=== PATIENT | female | born 1950 | race Asian ===

== ENCOUNTER 2019-04-18 18:57 | Emergency (ER) | payer BC, MEDICARE ==
[~2019-04-18] VITALS: Ht 154.9 cm; Wt 70.3 kg
[2019-04-18 19:09] VITALS: BP 121/56
--- NOTE | 2019-04-18 19:13 | NUR ---
PT AMBULATED TO ED BED 12
--- NOTE | 2019-04-18 19:28 | NUR ---
69 Y/O FEMALE PRESENTS TO ED, C/O COUGH X4 DAYS. COUGH IS NONPRODUCTIVE. LUNG SOUNDS BILAT CLEAR. DENIES ANY CHEST PAIN. NO SOB/DIFFICULTY BREATHING. PT STATES HAVING FEVER, AFEBRILE DURING TRIAGE ASSESSMENT. PT VSS. ERMD AWARE. WILL COTNINUE TO MONITOR.
[2019-04-18] MEDS ORDERED: ALBUTEROL 0.083% 2.5 MG/3 ML NEBU INH ONE (20:20)
--- NOTE | 2019-04-18 20:28 | NUR ---
NASAL FLU SWAB COLLECTED
--- NOTE | 2019-04-18 20:39 | NUR ---
XRAY AT BEDSIDE
--- NOTE | 2019-04-18 20:43 | NUR ---
RT AT BEDSIDE.
--- NOTE | 2019-04-18 21:08 | NUR ---
PT STATES HAVING RELIEF AFTER BREATHING TX.
[2019-04-18 21:30] VITALS: BP 121/56
--- NOTE | 2019-04-18 21:30 | NUR ---
PT DISCHARGED WITH PAPERWORK. EDUCATED PT REGARDING MEDICATIONS AND D/C INSTRUCTIONS. PT VERBALIZED UNDERSTANDING OF TEACHING. TOLD PT TO FOLLOW UP WITH PCP AND WHEN TO RETURN TO ED. PT AT STABLE CONDITION. NO SOB/DIFFICULTY BREATHING NOTED. ALL QUESTIONS ANSWERED.
== END 2019-04-18 21:30 | disposition home or self-care (01) ==
LOC: MED 18:57
DX: J11.1 Influenza due to unidentified influenza virus with other respiratory manifestations (principal); J45.909 Unspecified asthma, uncomplicated; I10 Essential (primary) hypertension; J20.9 Acute bronchitis, unspecified; Z88.0 Allergy status to penicillin; Z90.710 Acquired absence of both cervix and uterus
CPT/HCPCS: 71045; 87804; 94640; 99284; J7613; Q0092

== ENCOUNTER 2020-03-06 16:04 | Emergency (ER) | payer MEDICARE ==
[~2020-03-06] VITALS: Ht 154.9 cm; Wt 70.3 kg
[2020-03-06 16:23] VITALS: BP 146/65
--- NOTE | 2020-03-06 16:23 | NUR ---
PT C/O COUGH, FEVER, SOB, CHILLS, BODY ACHES, NAUSEA, FRONTAL HEADACHE WITH HEAVINESS SENSATION, LOSS THE SENSE OF TASTE FOR 2 DAYS. 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 AFERIBLE UPON TRIAGE. PMH: HTN
--- NOTE | 2020-03-06 16:50 | NUR ---
NOVEL COVID SWAB COLLECTED AND SENT TO THE LAB.
[2020-03-06 16:55] VITALS: BP 138/61
--- NOTE | 2020-03-06 16:55 | NUR ---
Patient discharged with v/s stable. Written and verbal after care instructions given and explained. Patient alert, oriented and verbalized understanding of instructions. Ambulatory with steady gait. All questions addressed prior to discharge. ID band removed. Patient advised to follow up with PMD. Rx of Ibuprofen, Promethazine, and Zofran given. Patient educated on indication of medication including possible reaction and side effects. Opportunity to ask questions provided and answered.
== END 2020-03-06 16:55 | disposition home or self-care (01) ==
LOC: MED 16:04
DX: B34.9 Viral infection, unspecified (principal); Z20.828 Contact with and (suspected) exposure to other viral communicable diseases; J45.909 Unspecified asthma, uncomplicated; I10 Essential (primary) hypertension; Z88.0 Allergy status to penicillin
CPT/HCPCS: 99283; U0003

== ENCOUNTER 2021-02-02 10:32 | Emergency (ER) | payer MEDICARE ==
[~2021-02-02] VITALS: Ht 154.9 cm; Wt 73.5 kg
[2021-02-02 10:32] VITALS: BP 112/68
--- NOTE | 2021-02-02 10:48 | NUR ---
70YO F C/O HEADACHE AND ELEVATED BP X 2 DAYS. HEADACHE 7/10, THROBBING. BP TAKEN AT HOME WAS 155/120. HTN MEDS TAKEN AT 8AM THIS MORNING. PT RECENTLY FOUND OUT ABOUT A SUDDEN IN FAMILY AND HAS BEEN UNABLE TO SLEEP X 2 DAYS. ALSO WITH LOSS OF APPETITE AND ANXIETY. PT DENIES ANY CHEST PAIN, SOB, OR BLURRED VISION AT THIS TIME. PT ADMITS TO FEELING ANXIOUS AT THIS TIME PMH: HTN MEDS: METOPROLOL, LOSARTAN ALLERGY: PENICILLIN
--- NOTE | 2021-02-02 11:30 | NUR ---
DR. PERRY BEDSIDE EVALUATING PT
[2021-02-02] MEDS ORDERED: ACETAMINOPHEN EXTRA STRENGTH 500 MG TAB PO ONE (11:45)
[2021-02-02] MEDS ORDERED: ATI.5 PO ×2 (11:50→11:51)
== END 2021-02-02 12:15 | disposition home or self-care (01) ==
LOC: MED 10:32 → EEVIPCON 10:32 → MED 12:15
DX: F41.9 Anxiety disorder, unspecified (principal); G47.00 Insomnia, unspecified; R51.9 Headache, unspecified; I10 Essential (primary) hypertension; Z88.0 Allergy status to penicillin
CPT/HCPCS: 99283

== ENCOUNTER 2021-03-20 17:11 | Emergency (ER) | payer MEDICARE ==
[~2021-03-20] VITALS: Ht 154.9 cm; Wt 70.3 kg
[~2021-03-20 17:11] MED LIST: ATI.5 PO
[2021-03-20 17:13] VITALS: BP 128/92
[2021-03-20] MEDS: PROCHLORPERAZINE 10 MG/2 ML VIAL IVP ONE (18:02)
[2021-03-20] MEDS: HYDROcodone/APAP 5/325 MG 1 TAB TAB PO ONE (18:02)
[2021-03-20] MEDS: NACL 0.9% 500 ML IV ONE (18:03)
[2021-03-20 18:17] LABS: BASOPHILS % (AUTO) 0.5 % (0.0-2.0); EOSINOPHILS # (AUTO) 0.2 K/uL (0-0.4); EOSINOPHILS % (AUTO) 2.6 % (0.0-4.0); HEMATOCRIT 41.9 % (36-48); HEMOGLOBIN 14.4 g/dL (12.0-16.0); LYMPHOCYTES # (AUTO) 3.4 K/uL (2.5-16.5); MEAN CORPUSCULAR HEMOGLOBIN 31 pg (27-31); MEAN CORPUSCULAR HGB CONC 34 g/dL (33-37); MEAN CORPUSCULAR VOLUME 89.8 fL (80-94); MONOCYTES # (AUTO) 0.5 K/uL (0.8-1.0); MONOCYTES % (AUTO) 6.6 % (1.7-9.3); NEUTROPHILS # (AUTO) 4.1 K/uL (1.8-7.7); NEUTROPHILS % (AUTO) 49.3 % (42.2-75.2); PLATELET COUNT (AUTO) 404 K/uL (140-450); RED BLOOD CELL COUNT(AUTO) 4.67 MIL/uL (4.20-5.40); RED CELL DISTRIBUTION WIDTH 13.8 % (11.6-13.7); WHITE BLOOD COUNT (AUTO) 8.3 K/uL (4.8-10.8)
[2021-03-20 18:38] LABS: ALBUMIN 4.5 g/dL (3.4-5.0); ANION GAP 14.6 (8-16); CARBON DIOXIDE 26.6 mmol/L (21-32); CREATININE 0.6 mg/dL (0.6-1.3); POTASSIUM 4.2 mmol/L (3.5-5.1); TOTAL BILIRUBIN 0.6 mg/dL (0.0-1.0)
[2021-03-20 22:00] VITALS: BP 137/88
== END 2021-03-20 22:00 | disposition home or self-care (01) ==
LOC: MED 17:11
DX: G43.909 Migraine, unspecified, not intractable, without status migrainosus (principal); I51.9 Heart disease, unspecified
CPT/HCPCS: 36415; 70450; 70496; 80053; 85025; 96361; 96374; 99285; J0780; J7040; Q9967; 99284

== ENCOUNTER 2023-01-01 12:30 | Emergency (ER) | payer MEDICARE, OTHER ==
[~2023-01-01] VITALS: Ht 154.9 cm; Wt 70.3 kg
[2023-01-01 12:54] VITALS: BP 136/72; PULSE 62; RESP 18; TEMP 97; O2SAT 97
[2023-01-01 13:42] LABS: BASOPHILS # (AUTO) 0.1 K/uL (0.00-0.22); BASOPHILS % (AUTO) 1.4 % (0.0-2.0); EOSINOPHILS # (AUTO) 0.2 K/uL (0-0.4); EOSINOPHILS % (AUTO) 2.4 % (0.0-4.0); HEMATOCRIT 40.2 % (36-48); HEMOGLOBIN 13.5 g/dL (12.0-16.0); LYMPHOCYTES # (AUTO) 3.1 K/uL (2.5-16.5); LYMPHOCYTES % (AUTO) 37.1 % (20.5-51.1); MEAN CORPUSCULAR HEMOGLOBIN 31 pg (27-31); MEAN CORPUSCULAR HGB CONC 34 g/dL (33-37); MEAN CORPUSCULAR VOLUME 90.9 fL (80-94); MONOCYTES # (AUTO) 0.6 K/uL (0.8-1.0); MONOCYTES % (AUTO) 7.5 % (1.7-9.3); NEUTROPHILS # (AUTO) 4.3 K/uL (1.8-7.7); NEUTROPHILS % (AUTO) 51.6 % (42.2-75.2); PLATELET COUNT (AUTO) 378 K/uL (140-450); RED BLOOD CELL COUNT(AUTO) 4.42 MIL/uL (4.20-5.40); RED CELL DISTRIBUTION WIDTH 14.2 % (11.6-13.7); WHITE BLOOD COUNT (AUTO) 8.2 K/uL (4.8-10.8)
[2023-01-01 13:46] LABS: APPEARANCE,URINE CLEAR (CLEAR); BILIRUBIN,URINE NEGATIVE (NEGATIVE); BLOOD, URINE NEGATIVE (NEGATIVE); COLOR,URINE YELLOW (YELLOW); LEUKOCYTE ESTERASE ,URINE TRACE (NEGATIVE); NITRITE, URINE NEGATIVE (NEGATIVE); PROTEIN,URINE NEGATIVE (NEGATIVE); UGLUCOSE NEGATIVE (NEGATIVE); UROBILINOGEN,URINE 0.2 EU/dL (0.2 - 1)
[2023-01-01] MEDS ORDERED: ONDANSETRON 4 MG/2 ML VIAL IVP ONE (13:50)
[2023-01-01] MEDS ORDERED: NACL 0.9% 1,000 ML IV ONE (13:50)
[2023-01-01] MEDS ORDERED: MORPHINE SULFATE 4 MG/ML SYR IVP ONE (13:50)
[2023-01-01] MEDS ORDERED: FAMOTIDINE 20 MG/2 ML VIAL IVP ONE (13:50)
[2023-01-01 13:58] LABS: BACTERIA,URINE FEW /HPF (None Seen); RBC,URINE 0-5 /HPF (0-5); SQUAMOUS EPITHELIAL CELL,UR 0-3 (FEW) /LPF (0-3 (FEW)); WBC,URINE 0-5 /HPF (0-5)
[2023-01-01 14:08] LABS: LACTIC ACID 1.4 mmol/L (0.4-2.0)
[2023-01-01 14:31] LABS: INR 0.97 (0.8-1.2); PROTHROMBIN TIME 10.2 secs (10.8-13.4)
[2023-01-01 14:38] LABS: ALANINE AMINOTRANSFERASE 41 U/L (12-78); ALKALINE PHOSPHATASE 70 U/L (50-136); ANION GAP 12.1 (8-16); ASPARTATE AMINOTRANSFERASE 26 U/L (15-37); CALCIUM 9.6 mg/dL (8.5-10.1); CARBON DIOXIDE 27.1 mmol/L (21-32); CHLORIDE 102 mmol/L (98-107); CREATINE KINASE, TOTAL 63 U/L (26-192); CREATININE 0.7 mg/dL (0.6-1.3); GFR ARICAN-AMERICAN 106 mL/min (>90); GFR NON ARICAN-AMERICAN 88 mL/min (>90); GLUCOSE 96 mg/dL (74-106); POTASSIUM 4.2 mmol/L (3.5-5.1); SODIUM SERUM 137 mmol/L (136-145); TOTAL BILIRUBIN 0.6 mg/dL (0.0-1.0); TOTAL PROTEIN, SERUM 7.5 g/dL (6.4-8.2); UREA NITROGEN, BLOOD 12 mg/dL (7-18)
[2023-01-01 14:39] LABS: LIPASE 70 U/L (73-393)
[2023-01-01] MEDS ORDERED: PANT40EC PO (18:42)
[2023-01-01] MEDS ORDERED: SUCR1SUS7 PO (18:42)
[2023-01-01 19:03] VITALS: BP 124/40; PULSE 55; RESP 18; O2SAT 97
== END 2023-01-01 19:03 | disposition home or self-care (01) ==
LOC: MED 12:30
DX: R10.13 Epigastric pain (principal); R11.2 Nausea with vomiting, unspecified; I10 Essential (primary) hypertension; Z79.899 Other long term (current) drug therapy; Z88.0 Allergy status to penicillin
CPT/HCPCS: 36415; 71045; 74176; 80053; 81001; 82550; 83605; 83690; 84484; 85025; 85610; 85730; 87040; 87086; 93005; 96361; 96374; 96375; 99285; J2270; J2405; J3490; J7030

== ENCOUNTER 2023-03-13 08:19 | Emergency (ER) | payer MEDICARE, OTHER ==
[~2023-03-13] VITALS: Ht 152.4 cm; Wt 70.3 kg
[~2023-03-13 08:19] MED LIST changes: +PANT40EC PO; +SUCR1SUS7 PO
[2023-03-13 08:38] VITALS: BP 141/60; PULSE 89; RESP 18; TEMP 98; O2SAT 98
[2023-03-13] MEDS ORDERED: ALBU0.0912 IH (12:01)
[2023-03-13] MEDS ORDERED: ONDA-188 SL (12:01)
[2023-03-13] MEDS ORDERED: BENZ200C4 PO (12:01)
[2023-03-13 12:25] LABS: FLU A ANTIGEN negative (NEGATIVE); FLU B ANTIGEN negative (NEGATIVE)
[2023-03-13 12:33] VITALS: BP 123/62; PULSE 78; RESP 18; O2SAT 95
== END 2023-03-13 12:33 | disposition home or self-care (01) ==
LOC: MED 08:19
DX: U07.1 COVID-19 (principal); I10 Essential (primary) hypertension; Z79.899 Other long term (current) drug therapy; Z88.0 Allergy status to penicillin
CPT/HCPCS: 71046; 87420; 99284

== ENCOUNTER 2023-03-28 13:32 | Outpatient (CLI) | payer MEDICARE, OTHER ==
[~2023-03-28 13:32] MED LIST changes: +ALBU0.0912 IH; +BENZ200C4 PO; +ONDA-188 SL
[2023-03-29 07:07] LABS: HEPATITIS A ANTIBODY IGM Negative (Negative); HEPATITIS B SURFACE ANTIBODY Reactive (.); HEPATITIS B SURFACE ANTIGEN Negative (Negative)
[2023-03-29 10:30] LABS: HEPATITIS B CORE ANTIBODY Positive (Negative)
[2023-04-18 13:54] LABS: BASOPHILS # (AUTO) 0.1 K/uL (0.00-0.22); BASOPHILS % (AUTO) 0.7 % (0.0-2.0); EOSINOPHILS # (AUTO) 0.2 K/uL (0-0.4); EOSINOPHILS % (AUTO) 3.2 % (0.0-4.0); HEMATOCRIT 39.2 % (36-48); HEMOGLOBIN 13.3 g/dL (12.0-16.0); LYMPHOCYTES # (AUTO) 3.6 K/uL (2.5-16.5); LYMPHOCYTES % (AUTO) 46.3 % (20.5-51.1); MEAN CORPUSCULAR HEMOGLOBIN 31 pg (27-31); MEAN CORPUSCULAR HGB CONC 34 g/dL (33-37); MEAN CORPUSCULAR VOLUME 90.5 fL (80-94); MONOCYTES # (AUTO) 0.6 K/uL (0.8-1.0); MONOCYTES % (AUTO) 7.6 % (1.7-9.3); NEUTROPHILS # (AUTO) 3.3 K/uL (1.8-7.7); NEUTROPHILS % (AUTO) 42.2 % (42.2-75.2); PLATELET COUNT (AUTO) 350 K/uL (140-450); RED BLOOD CELL COUNT(AUTO) 4.33 MIL/uL (4.20-5.40); RED CELL DISTRIBUTION WIDTH 14.4 % (11.6-13.7); WHITE BLOOD COUNT (AUTO) 7.8 K/uL (4.8-10.8)
[2023-04-18 15:13] LABS: ALANINE AMINOTRANSFERASE 42 U/L (12-78); ALBUMIN 3.9 g/dL (3.4-5.0); ALKALINE PHOSPHATASE 72 U/L (50-136); ANION GAP 10.3 (8-16); ASPARTATE AMINOTRANSFERASE 26 U/L (15-37); CALCIUM 8.9 mg/dL (8.5-10.1); CARBON DIOXIDE 31.1 mmol/L (21-32); CHLORIDE 102 mmol/L (98-107); CHOL/HDL RATIO 2.5 (1-4.5); CHOLESTEROL 135 mg/dL (<200); CREATININE 0.7 mg/dL (0.6-1.3); GLUCOSE 101 mg/dL (74-106); HDL CHOLESTEROL 55 mg/dL (40-60); LDL (CALC) 65 mg/dL (60-100); POTASSIUM 4.4 mmol/L (3.5-5.1); SODIUM SERUM 139 mmol/L (136-145); TOTAL BILIRUBIN 0.7 mg/dL (0.0-1.0); TOTAL PROTEIN, SERUM 8.8 g/dL (6.4-8.2); TRIGLYCERIDES 75 mg/dL (30-150); UREA NITROGEN, BLOOD 14 mg/dL (7-18)
== END 2023-03-28 18:23 | disposition home or self-care (01) ==
LOC: MLB 13:32
PROVIDERS: ATTEND Student in an Organized Health Care Education/Training Program
DX: Z00.00 Encounter for general adult medical examination without abnormal findings (principal)
CPT/HCPCS: 36415; 80053; 85025; 86592; 86704; 86706; 86709; 86803; 87340; 87491

== ENCOUNTER 2023-05-09 13:35 | Outpatient (CLI) | payer MEDICARE, OTHER | END 2023-05-09 17:47 | disposition home or self-care (01) | LOC: MLB 13:35 | PROVIDERS: ATTEND Family Medicine | DX: Z00.00 Encounter for general adult medical examination without abnormal findings (principal) | CPT/HCPCS: 36415; 83036 ==

== ENCOUNTER 2023-06-17 14:00 | Outpatient (CLI) | payer OTHER, MEDICARE | END 2023-06-17 21:00 | disposition home or self-care (01) | LOC: MCA 14:00 | PROVIDERS: ATTEND Student in an Organized Health Care Education/Training Program | DX: I36.1 Nonrheumatic tricuspid (valve) insufficiency (principal); I50.30 Unspecified diastolic (congestive) heart failure ==

== ENCOUNTER 2023-11-20 13:06 | Emergency (ER) | payer OTHER, MEDICARE ==
[~2023-11-20] VITALS: Ht 154.9 cm; Wt 70.3 kg
[2023-11-20 13:08] VITALS: BP 135/84; PULSE 75; RESP 18; TEMP 98.6; O2SAT 99
== END 2023-11-20 13:24 | disposition home or self-care (01) ==
LOC: MED 13:06
DX: S81.851A Open bite, right lower leg, initial encounter (principal); I10 Essential (primary) hypertension; Z79.899 Other long term (current) drug therapy; Z88.0 Allergy status to penicillin; W54.0XXA Bitten by dog, initial encounter; Y93.89 Activity, other specified; Y92.89 Other specified places as the place of occurrence of the external cause; Y99.8 Other external cause status
CPT/HCPCS: 90471; 90715; 99283